=== PATIENT | female | born 1990 | race Caucasian/White ===

== ENCOUNTER 2017-10-17 13:10 | Emergency (ER) | payer MEDICARE ==
[~2017-10-17] VITALS: Ht 167.6 cm; Wt 100.0 kg
[2017-10-17 13:11] VITALS: BP 122/84; PULSE 93; RESP 16; TEMP 99.7; O2SAT 99
--- NOTE | 2017-10-17 14:22 | PD ---
HPI Chief Complaint: Chest Pain Time Seen by Provider: 14:01 Travel History International Travel<30 days: No Contact w/Intl Traveler<30days: No Traveled to known affect area: No History of Present Illness HPI The patient was seen and examined in the presence of the nurse. This patient complains of chest pain. Location is low center sternum. Feels like an aching pressure. Nonexertional induced. Duration 1 hour. Currently improved. Her last couple of days she's had nausea vomiting diarrhea thought to be food poisoning from [employer]. No fever. No respiratory symptoms. Was seen in the emergency department yesterday and [place] head and had extensive workup including complete labs and chest x-ray and CT of abdomen and pelvis. PFSH Past Medical History ?: Not LMP: 10/06/17 Social History Alcohol Use: No Tobacco Use: No Substance Use: No Review of Systems General / Constitutional: No: Fever Eyes: No: Visual changes HENT: No: Headaches Cardiovascular: Positive: Chest Pain or Discomfort Respiratory: No: Shortness of Breath Gastrointestinal: No: Abdominal Pain Genitourinary: No: Dysuria Musculoskeletal: No: Pain Skin: No Rash Neurologic: No: Weakness Psychiatric: No: Depression Endocrine: No: Polydipsia Hematologic/Lymphatic: No: Easy Bruising Physical Exam Narrative GENERAL: Well-nourished, well-developed patient in no apparent distress. Mother reports she is autistic SKIN: Focused skin assessment reveals no rash and nodules. Skin is Warm and dry. HEAD: Atraumatic. Normocephalic. EYES: Pupils equal and round. No scleral icterus. No injection or drainage. ENT: No nasal bleeding or discharge. Mucous membranes pink and moist. NECK: Trachea midline. No JVD. Has wide neck CARDIOVASCULAR: Regular rate and rhythm. No murmur appreciated. RESPIRATORY: No accessory muscle use. Clear to auscultation. Breath sounds equal bilaterally. GASTROINTESTINAL: Abdomen soft, non-tender, nondistended. Hepatic and splenic margins not palpable. MUSCULOSKELETAL: No obvious deformities. No clubbing. No cyanosis. No edema. NEUROLOGICAL: Awake and alert. No obvious cranial nerve deficits. Motor grossly within normal limits. Normal speech. PSYCHIATRIC: Appropriate mood and affect; insight and judgment normal. Data Data Last Documented VS Vital Signs Date Time Temp Pulse Resp B/P (MAP) Pulse Ox O2 Delivery O2 Flow Rate FiO2 10/17/17 14:19 17 96 Room Air 10/17/17 13:11 99.7 93 122/84 (97) Orders Orders Electrocardiogram (10/17/17 ) MDM Medical Decision Making Medical Screen Exam Complete: Yes Emergency Medical Condition: Yes Medical Record Reviewed: Yes Differential Diagnosis Differential diagnosis includes CO, angina, pericarditis, pleurisy, GERD, anxiety. Narrative Course I have reviewed the patient's electronic medical record. Reviewed her paperwork from [facility] from yesterday I reviewed her EKG which shows sinus rhythm but no ST elevation I don't feel performing extensive workup would be helpful here today. She had chest x-ray and abdominal CT and labs yesterday. She was placed on antibiotics for a subclinical pneumonia. Her chest pain is noncardiac. I don't feel she requires emergent workup. Recommend she reviewed with her physician Diagnosis Primary Impression: Non-cardiac chest pain Med/Other Pt SpecificInfo: Other Disposition: 01 DISCHARGE HOME Condition: Stable Rajendra Wayne MD Oct 17, 2017 14:22
[2017-10-17 15:19] VITALS: BP 137/68
--- NOTE | 2017-10-18 13:20 | EKG ---
Date Performed: 10/17/2017 Time Performed: 14:33:40 PTAGE: 27 years EKG: DIFFUSE NONSPECIFIC T-WAVE CHANGE ABNORMAL ECG NO PREVIOUS TRACING DOCTOR: Edvin Stephenson Interpretating Date/Time 10/18/2017 13:19:29
== END 2017-10-17 15:45 | disposition home or self-care (01) ==
LOC: NEPC 13:10
DX: R07.89 Other chest pain (principal)
CPT/HCPCS: 93005; 99283

== ENCOUNTER 2018-01-09 15:26 | Emergency (ER) | payer MEDICARE, OTHER ==
[~2018-01-09] VITALS: Ht 167.6 cm; Wt 100.0 kg
[2018-01-09 15:32] VITALS: BP 130/69; PULSE 98; RESP 20; TEMP 98; O2SAT 97
--- NOTE | 2018-01-09 16:06 | PD ---
HPI Chief Complaint: Cold / Flu Symptoms Time Seen by Provider: 16:05 Travel History International Travel<30 days: No Contact w/Intl Traveler<30days: No Traveled to known affect area: No History of Present Illness HPI 27-year-old female with history of MR and seizure disorder, normally seen at [facility], presents to the emergency department with recurrent fever, and ongoing mild cough, and nausea without vomiting. No diarrhea is noted. Patient has no significant pain. Mother is here with the patient states that she has been seen 3 times since October with diagnosis of right lower lobe pneumonia, treated 3 times in that time. She states she was seen earlier this week and diagnosed with influenza, given Tamiflu 75 mg twice daily for 5 days, as well as Bactrim DS twice daily 7 days. Mom is concerned as the patient spiked 101.2 fever earlier today. Patient has no history of asthma or bronchitis in the past. She denies history of reflux but patient's mom states she always complains of nausea and feeling full. Patient is waiting to be seen by a program director for the findings on CT at [facility]. On review of the CT report shows possible consolidation in the right lower lobe which could indicate pneumonia versus other etiology. Patient has no smoking history. Patient did have trouble with asthma as a young child, but not for many years. She has no known drug allergies. PFSH Past Medical History ?: Not LMP: 01/02/18 Social History Alcohol Use: No Tobacco Use: No Substance Use: No Allergies-Medications (Allergen,Severity, Reaction): Coded Allergies: No Known Allergies (Verified Allergy, Unknown, 01/09/18) Reported Meds & Prescriptions Reported Meds & Active Scripts Active Reported Zofran (Ondansetron HCl) 4 Mg Tab 4 Mg PO Q8HR PRN Ibuprofen 800 Mg Tab 800 Mg PO Q8H PRN Calcium 500 +D (Calcium Carbonate-Cholecalciferol) 500-400 Mg-Unit Tab 1 Tab PO DAILY Elisa Allergy (Fexofenadine HCl) 180 Mg Tab 180 Mg PO DAILY Lexapro (Escitalopram Oxalate) 5 Mg Tab 5 Mg PO DAILY Phenobarbital 64.8 Mg Tab 64.8 Mg PO BID Bactrim DS (Sulfamethoxazole-Trimethoprim) 800-160 Mg Tab 1 Tab PO BID Review of Systems Except as stated in HPI: all other systems reviewed are Neg General / Constitutional: Positive: Fever, Chills Eyes: No: Visual changes HENT: No: Headaches, Vertigo, Lightheadedness, Sore Throat, Rhinitis, Rhinorrhea, Congestion, Nosebleed, Neck Stiffness, Neck Pain, Dental Difficulties, Earache Cardiovascular: No: Chest Pain or Discomfort Respiratory: Positive: Cough, Wheezing, No: Shortness of Breath, Sneezing ( With cough), Orthopnea, Hemoptysis, Night Sweats, Pleuritic Pain Gastrointestinal: Positive: Nausea, No: Vomiting, Diarrhea, Abdominal Pain Genitourinary: No: Urgency, Frequency, Dysuria Musculoskeletal: No: Pain Skin: No Rash Neurologic: No: Weakness Psychiatric: No: Depression Endocrine: No: Polydipsia Hematologic/Lymphatic: No: Easy Bruising Physical Exam Narrative GENERAL: This is a very sweet appearing young lady in no acute distress per SKIN: Warm and dry. Normal color. Normal turgor per HEAD: Atraumatic. Normocephalic. EYES: Pupils equal and round. No scleral icterus. No injection or drainage. ENT: No nasal bleeding or discharge. Mucous membranes pink and moist. TMs are clear bilaterally. No significant sinus tenderness to palpation. Posterior pharynx is unremarkable. Airways patent. NECK: Trachea midline. Supple and nontender. CARDIOVASCULAR: Regular rate and rhythm. No murmurs gallops or rubs RESPIRATORY: No accessory muscle use. Mild diffuse wheezing without rhonchi or rales to auscultation. Breath sounds equal bilaterally. GASTROINTESTINAL: Abdomen soft, non-tender, nondistended. Hepatic and splenic margins not palpable. MUSCULOSKELETAL: Extremities without clubbing, cyanosis, or edema. No obvious deformities. NEUROLOGICAL: Awake and alert. No obvious cranial nerve deficits. Motor grossly within normal limits. Five out of 5 muscle strength in the arms and legs. Normal speech. PSYCHIATRIC: Appropriate mood and affect; insight and judgment normal. Data Data Last Documented VS Vital Signs Date Time Temp Pulse Resp B/P (MAP) Pulse Ox O2 Delivery O2 Flow Rate FiO2 01/09/18 17:04 97 Room Air 01/09/18 16:42 20 01/09/18 15:32 98.0 98 130/69 (89) Orders Orders Complete Blood Count With Diff (01/09/18 16:36) Comprehensive Metabolic Panel (01/09/18 16:36) Chest, Pa & Lat (01/09/18 16:36) Ecg Monitoring (01/09/18 16:36) Iv Access Insert/Monitor (01/09/18 16:36) Oximetry (01/09/18 16:36) Oxygen Administration (01/09/18 16:36) Albuterol-Ipratropium Neb (Duoneb Neb) (01/09/18 16:45) Sodium Chloride 0.9% Flush (Ns Flush) (01/09/18 16:45) Influenzae A/B Antigen (01/09/18 16:36) Ua Includes Microscopic (01/09/18 16:42) Prednisone (Deltasone) (01/09/18 18:45) Levofloxacin (Levaquin) (01/09/18 18:45) Pantoprazole (Protonix) (01/09/18 18:45) Labs Laboratory Tests Test 01/09/18 16:50 White Blood Count 4.5 TH/MM3 Red Blood Count 3.85 MIL/MM3 Hemoglobin 12.8 GM/DL Hematocrit 35.9 % Mean Corpuscular Volume 93.3 FL Mean Corpuscular Hemoglobin 33.1 PG Mean Corpuscular Hemoglobin Concent 35.5 % Red Cell Distribution Width 12.9 % Platelet Count 125 TH/MM3 Mean Platelet Volume 7.7 FL Neutrophils (%) (Auto) 63.4 % Lymphocytes (%) (Auto) 11.3 % Monocytes (%) (Auto) 11.3 % Eosinophils (%) (Auto) 13.9 % Basophils (%) (Auto) 0.1 % Neutrophils # (Auto) 2.9 TH/MM3 Lymphocytes # (Auto) 0.5 TH/MM3 Monocytes # (Auto) 0.5 TH/MM3 Eosinophils # (Auto) 0.6 TH/MM3 Basophils # (Auto) 0.0 TH/MM3 CBC Comment DIFF FINAL Differential Comment Blood Urea Nitrogen 9 MG/DL Creatinine 0.84 MG/DL Random Glucose 88 MG/DL Total Protein 7.7 GM/DL Albumin 3.7 GM/DL Calcium Level 8.1 MG/DL Alkaline Phosphatase 122 U/L Aspartate Amino Transf (AST/SGOT) 15 U/L Alanine Aminotransferase (ALT/SGPT) 18 U/L Total Bilirubin 0.2 MG/DL Sodium Level 135 MEQ/L Potassium Level 4.2 MEQ/L Chloride Level 101 MEQ/L Carbon Dioxide Level 26.1 MEQ/L Anion Gap 8 MEQ/L Estimat Glomerular Filtration Rate 81 ML/MIN [facility] Medical Decision Making Medical Screen Exam Complete: Yes Emergency Medical Condition: Yes Medical Record Reviewed: Yes Differential Diagnosis Recurrent pneumonia. Febrile illness. Viral illness. Reflux. Asthma. Bronchitis. Narrative Course Patient appears medically stable at time of exam. Labs ordered including CBC, CMP Chest x-ray PA and laterals ordered. IV access is obtained. DuoNeb is ordered. CBC shows no significant findings. CMP unremarkable except for sodium 135, GFR is 81, calcium is 8.1, alk phos is 122. Chest x-ray shows: Right lung is clear. There is minimal streaky airspace disease in the left lower lobe with air bronchograms present. No effusion. Heart size normal. Patient felt improved after her DuoNeb. Patient is felt to have recurrent pneumonia. Patient is to stop her Bactrim Patient is given first dose of Levaquin 750 now Patient is given prednisone 20 mg p.o. now. Patient is given pantoprazole 40 mg p.o. now. Patient will be continued on Levaquin 750 mg daily for 10 days. Patient is continued on prednisone 20 mg daily for 7 days. Patient is started on omeprazole 40 mg daily #30. Patient started on albuterol 2 puffs every 4-6 hours as needed cough or shortness of breath. Patient is given refill of Zofran 4 mg every 6 hours as needed #20 Patient should follow-up with the program director as currently scheduled. Patient can return if symptoms worsen as needed. Diagnosis Primary Impression: Recurrent pneumonia Additional Impressions: Wheezing GERD (gastroesophageal reflux disease) Qualified Codes: K21.9 - Gastro-esophageal reflux disease without esophagitis Nausea Referrals: [facility] Patient Instructions: Diet for Stomach Ulcers and Gastritis (ED), General Instructions, How to Use a Metered-Dose Inhaler (DC), Prednisone (By mouth) Additional Instructions: CBC shows no significant findings. CMP unremarkable except for sodium 135, GFR is 81, calcium is 8.1, alk phos is 122. Chest x-ray shows: Right lung is clear. There is minimal streaky airspace disease in the left lower lobe with air bronchograms present. No effusion. Heart size normal. Patient felt improved after her DuoNeb. Patient is felt to have recurrent pneumonia. Patient is to stop her Bactrim Patient is given first dose of Levaquin 750 now Patient is given prednisone 20 mg p.o. now. Patient is given pantoprazole 40 mg p.o. now. Patient will be continued on Levaquin 750 mg daily for 10 days. Patient is continued on prednisone 20 mg daily for 7 days. Patient is started on omeprazole 40 mg daily #30. Patient started on albuterol 2 puffs every 4-6 hours as needed cough or shortness of breath. Patient is given refill of Zofran 4 mg every 6 hours as needed #20 Patient should follow-up with the program director as currently scheduled. Patient can return if symptoms worsen as needed. Med/Other Pt SpecificInfo: Prescription(s) given Disposition: 01 DISCHARGE HOME Condition: Stable Black Ordaz Jan 09, 2018 16:06
[2018-01-09] MEDS ORDERED: FEXO15TA PO (16:39)
[2018-01-09] MEDS ORDERED: PHENO60 PO (16:39)
[2018-01-09] MEDS ORDERED: CALC1TAB12 PO (16:39)
[2018-01-09] MEDS ORDERED: LEXA5TAB PO (16:39)
[2018-01-09] MEDS ORDERED: BACT800T5 PO (16:39)
[2018-01-09] MEDS ORDERED: ZOFR4TAB PO (16:40)
[2018-01-09] MEDS ORDERED: IBUP1TAB7 PO (16:40)
[2018-01-09] MEDS ORDERED: RESP: ALBUTEROL 2.5 MG/IPRATROPIUM 0.5 MG NEB (SCH) INH ONE (16:45)
[2018-01-09] MEDS ORDERED: SODIUM CHLORIDE 0.9% FLUSH 10 ML FLUSH IVF PRN (16:45)
[2018-01-09 17:04] VITALS: O2SAT 97
[2018-01-09 17:06] LABS: AUTOMATED NEUTROPHIL # 2.9 TH/MM3 (1.8-7.7); BASOPHIL % 0.1 % (0.0-2.0); EOSINOPHIL # 0.6 TH/MM3 (0-0.4); EOSINOPHIL % 13.9 % (0.0-4.0); HEMATOCRIT 35.9 % (35.0-46.0); HEMOGLOBIN 12.8 GM/DL (11.6-15.3); LYMPH % 11.3 % (9.0-44.0); LYMPHOCYTE # 0.5 TH/MM3 (1.0-4.8); MEAN CELL VOLUME 93.3 FL (80.0-100.0); MEAN CORPUSCULAR HEMOGLOBIN 33.1 PG (27.0-34.0); MEAN CORPUSCULAR HGB CONC 35.5 % (32.0-36.0); MEAN PLATELET VOLUME 7.7 FL (7.0-11.0); MONO % 11.3 % (0.0-8.0); MONOCYTE # 0.5 TH/MM3 (0-0.9); NEUT % 63.4 % (16.0-70.0); PLATELET COUNT 125 TH/MM3 (150-450); RED BLOOD COUNT 3.85 MIL/MM3 (4.00-5.30); RED CELL DISTRIBUTION WIDTH 12.9 % (11.6-17.2); WHITE BLOOD COUNT 4.5 TH/MM3 (4.0-11.0)
--- NOTE | 2018-01-09 17:21 | RADRPT ---
EXAM DATE/TIME: 01/09/2018 16:58 [facility] COMPARISON: No previous studies available for comparison. INDICATIONS : Flu symptoms since Thursday. MEDICAL HISTORY : None. SURGICAL HISTORY : None. ENCOUNTER: Initial ACUITY: 4 - 6 days PAIN SCORE: 0/10 LOCATION: Bilateral chest. FINDINGS: Right lung is clear. There is minimal streaky airspace disease in the left lower lobe with air bronch ograms present. No effusion. Heart size normal. CONCLUSION: Left basilar airspace disease suspected. Elver Stone MD on January 09, 2018 at 17:20 Board Certified Radiologist. This report was verified electronically.
[2018-01-09 17:27] LABS: ALBUMIN 3.7 GM/DL (3.4-5.0); AST (GOT) 15 U/L (15-37); BICARBONATE 26.1 MEQ/L (21.0-32.0); BLOOD UREA NITROGEN 9 MG/DL (7-18); CALCIUM 8.1 MG/DL (8.5-10.1); CHLORIDE 101 MEQ/L (98-107); CREATININE 0.84 MG/DL (0.50-1.00); GLOMERULAR FILTRATION RATE 81 ML/MIN (>89); GLUCOSE,RANDOM 88 MG/DL (74-106); SODIUM (NA) 135 MEQ/L (136-145)
[2018-01-09 17:31] LABS: ALKALINE PHOSPHATASE 122 U/L (45-117); ALT (GPT) 18 U/L (10-53); TOTAL BILIRUBIN ADULT 0.2 MG/DL (0.2-1.0); TOTAL PROTEIN 7.7 GM/DL (6.4-8.2)
[2018-01-09 18:30] VITALS: BP 121/77; PULSE 79; RESP 19; O2SAT 96
[2018-01-09] MEDS ORDERED: PANTOPRAZOLE SOD 40 MG DELAYED RELEASE TAB PO ONE (18:45)
[2018-01-09] MEDS ORDERED: LEVOFLOXACIN 750 MG TAB PO ONE (18:45)
[2018-01-09] MEDS ORDERED: predniSONE 20 MG TAB PO ONE (18:45)
[2018-01-09] MEDS ORDERED: OMEP40CA2 PO (18:57)
[2018-01-09] MEDS ORDERED: PRED20 PO (18:57)
[2018-01-09] MEDS ORDERED: LEVA750T9 PO (18:57)
[2018-01-09] MEDS ORDERED: VENTAER INH (18:57)
[2018-01-10] MEDS ORDERED: DIPH25CA PO (17:25)
== END 2018-01-09 19:13 | disposition home or self-care (01) ==
LOC: NEPD 15:26
DX: J18.9 Pneumonia, unspecified organism (principal); K21.9 Gastro-esophageal reflux disease without esophagitis; R11.0 Nausea; G40.909 Epilepsy, unspecified, not intractable, without status epilepticus; Z79.899 Other long term (current) drug therapy
CPT/HCPCS: 71046; 80053; 85025; 87804; 94664; 99284; J7512

== ENCOUNTER 2018-01-10 11:11 | Emergency (ER) | payer MEDICARE, OTHER ==
[~2018-01-10] VITALS: Ht 167.6 cm; Wt 100.0 kg
[~2018-01-10 11:11] MED LIST: BACT800T5 PO; CALC1TAB12 PO; FEXO15TA PO; IBUP1TAB7 PO; LEVA750T9 PO; LEXA5TAB PO; OMEP40CA2 PO; PHENO60 PO; PRED20 PO; VENTAER INH; ZOFR4TAB PO
[2018-01-10 11:15] VITALS: BP 133/61; PULSE 93; RESP 17; TEMP 98.4; O2SAT 97
--- NOTE | 2018-01-10 12:45 | RADRPT ---
EXAM DATE/TIME: 01/10/2018 12:18 [facility] COMPARISON: CHEST PA & LAT, January 09, 2018, 16:58. INDICATIONS : Flu Symptoms since Thursday MEDICAL HISTORY : None. SURGICAL HISTORY : None. ENCOUNTER: Initial ACUITY: 1 week PAIN SCORE: 0/10 LOCATION: chest FINDINGS: A single view of the chest demonstrates the lungs to be symmetrically aerated without evidence of mas s, infiltrate or effusion. The cardiomediastinal contours are unremarkable. Osseous structures are intact. CONCLUSION: Normal examination. Elver Stone MD on January 10, 2018 at 12:44 Board Certified Radiologist. This report was verified electronically.
--- NOTE | 2018-01-10 12:48 | PD ---
HPI Chief Complaint: General Weakness Time Seen by Provider: 11:30 Travel History International Travel<30 days: No Contact w/Intl Traveler<30days: No Traveled to known affect area: No History of Present Illness HPI 27yo F with PMH of MR seizure here with c/o rash that started this morning. Rash in on her chest, upper back and upper arms. Pt was seen yesterday for recurrent pneumonia and was place on levaquin and told to stop her bactrim. She also just finished tamiflu. Complains of generalized weakness today and vomiting yesterday and today. States she has sob. Denies fever, chest pain, abdominal pain, focal weakness or numbness. PFSH Past Medical History Cerebral Palsy: Yes (mild ) Diminished Hearing: No Neurologic: Yes Seizures: Yes Tetanus Vaccination: Unknown Influenza Vaccination: No ?: Unknown Social History Alcohol Use: No Tobacco Use: No Substance Use: No Allergies-Medications (Allergen,Severity, Reaction): Coded Allergies: adhesive (Verified Allergy, Mild, Rash, 01/10/18) Reported Meds & Prescriptions Reported Meds & Active Scripts Active Omeprazole 40 Mg Cap 40 Mg PO DAILY Ventolin Hfa 18 GM Inh (Albuterol Sulfate) 90 Mcg/Act Aer 2 Puff INH Q4-6H PRN Prednisone 20 Mg Tab 20 Mg PO DAILY 7 Days Levaquin (Levofloxacin) 750 Mg Tablet 750 Mg PO DAILY 10 Days Reported Zofran (Ondansetron HCl) 4 Mg Tab 4 Mg PO Q8HR PRN Ibuprofen 800 Mg Tab 800 Mg PO Q8H PRN Calcium 500 +D (Calcium Carbonate-Cholecalciferol) 500-400 Mg-Unit Tab 1 Tab PO DAILY Elisa Allergy (Fexofenadine HCl) 180 Mg Tab 180 Mg PO DAILY Lexapro (Escitalopram Oxalate) 5 Mg Tab 5 Mg PO DAILY Phenobarbital 64.8 Mg Tab 64.8 Mg PO BID Review of Systems Except as stated in HPI: all other systems reviewed are Neg Physical Exam Narrative GENERAL: 27yo F not in distress. SKIN: Erythematous rash upper chest, bilateral upper arms, upper back. No mucosal involvement. HEAD: Atraumatic. Normocephalic. EYES: Pupils equal and round. No scleral icterus. No injection or drainage. ENT: No tongue or lip swelling. NECK: Trachea midline. No JVD. CARDIOVASCULAR: Regular rate and rhythm. No murmur appreciated. RESPIRATORY: No accessory muscle use. Clear to auscultation. Breath sounds equal bilaterally. GASTROINTESTINAL: Abdomen soft, non-tender, nondistended. MUSCULOSKELETAL: No obvious deformities. No clubbing. No cyanosis. No edema. NEUROLOGICAL: Awake and alert. No obvious cranial nerve deficits. Motor grossly within normal limits. Normal speech. PSYCHIATRIC: Appropriate mood and affect; insight and judgment normal. Data Data Last Documented VS Vital Signs Date Time Temp Pulse Resp B/P (MAP) Pulse Ox O2 Delivery O2 Flow Rate FiO2 01/10/18 11:15 98.4 93 17 133/61 (85) 97 Orders Orders Complete Blood Count With Diff (01/10/18 11:46) Basic Metabolic Panel (Bmp) (01/10/18 11:46) Chest, Single Ap (01/10/18 ) Ondansetron Inj (Zofran Inj) (01/10/18 16:15) Diphenhydramine (Benadryl) (01/10/18 16:15) Labs Laboratory Tests Test 01/10/18 12:40 White Blood Count 3.7 TH/MM3 Red Blood Count 3.97 MIL/MM3 Hemoglobin 12.9 GM/DL Hematocrit 37.7 % Mean Corpuscular Volume 94.8 FL Mean Corpuscular Hemoglobin 32.6 PG Mean Corpuscular Hemoglobin Concent 34.4 % Red Cell Distribution Width 13.0 % Platelet Count 122 TH/MM3 Mean Platelet Volume 7.7 FL CBC Comment AUTO DIFF Differential Total Cells Counted 100 Neutrophils % (Manual) 36 % Band Neutrophils % 2 % Lymphocytes % 31 % Monocytes % 14 % Eosinophils % 17 % Neutrophils # (Manual) 1.4 TH/MM3 Differential Comment FINAL DIFF MANUAL Atypical Lymphocytes % Platelet Estimate LOW Platelet Morphology Comment NORMAL Red Cell Morphology Comment NORMAL Blood Urea Nitrogen 8 MG/DL Creatinine 0.73 MG/DL Random Glucose 80 MG/DL Calcium Level 8.4 MG/DL Sodium Level 136 MEQ/L Potassium Level 4.2 MEQ/L Chloride Level 102 MEQ/L Carbon Dioxide Level 28.1 MEQ/L Anion Gap 6 MEQ/L Estimat Glomerular Filtration Rate 96 ML/MIN [facility] Medical Decision Making Medical Screen Exam Complete: Yes Emergency Medical Condition: Yes Differential Diagnosis Medication reaction vs. allergic reaction vs. URI vs. viral syndrome vs. pneumonia Narrative Course 27yo F with rash that started today. Pt has been on multiple medications and unsure what is really the cause of the rash. Pt is well appearing with no respiratory distress. Labs reviewed, WBC mildly decreased at 3.7 from 4.5 yesterday. No bandemia. Mild thrombocytopenia at 122 which is not change from yesterday. BMP unremarkable. No signs of dehydration. Pt initially said rash was not itchy but then said it is so diphenhydramine given. Pt also given zofran for nausea. CXR negative. Pt reevaluated at bedside and states she is feeling better, no longer itchy and not sob. Pt has been speaking in complete sentences the whole time with clear lungs and saturating at 97% on RA. Pt is with her mother and tolerating PO now. Pt has not vomited in the ED. Diagnosis Primary Impression: Rash Patient Instructions: General Instructions Departure Forms: Tests/Procedures Additional Instructions: Please follow up with your primary care physician in 2-3 days. Return to the ED if symptoms worsen. Med/Other Pt SpecificInfo: Prescription(s) given Scripts Diphenhydramine (Diphenhydramine) 25 Mg Cap 25 MG PO Q6H Y for ITCHING for 5 Days, #20 CAP 0 Refills Prov: Nereida Redmond DO 01/10/18 Disposition: 01 DISCHARGE HOME Condition: Stable Nereida Redmond DO Jan 10, 2018 12:48
[2018-01-10 13:34] LABS: HEMATOCRIT 37.7 % (35.0-46.0); HEMOGLOBIN 12.9 GM/DL (11.6-15.3); MEAN CELL VOLUME 94.8 FL (80.0-100.0); MEAN CORPUSCULAR HEMOGLOBIN 32.6 PG (27.0-34.0); MEAN CORPUSCULAR HGB CONC 34.4 % (32.0-36.0); MEAN PLATELET VOLUME 7.7 FL (7.0-11.0); PLATELET COUNT 122 TH/MM3 (150-450); RED BLOOD COUNT 3.97 MIL/MM3 (4.00-5.30); WHITE BLOOD COUNT 3.7 TH/MM3 (4.0-11.0)
[2018-01-10 14:15] LABS: BICARBONATE 28.1 MEQ/L (21.0-32.0); CALCIUM 8.4 MG/DL (8.5-10.1); CREATININE 0.73 MG/DL (0.50-1.00)
[2018-01-10 14:21] LABS: BANDS 2 % (0-6); LYMPHOCYTES 31 % (9-44); MONOCYTES 14 % (0-8); NEUTROPHIL # MANUAL DIFF 1.4 TH/MM3 (1.8-7.7); POLYS (SEG NEUTROPHILS) 36 % (16-70)
[2018-01-10 15:20] VITALS: BP 128/63; PULSE 84; RESP 15; O2SAT 98
[2018-01-10] MEDS ORDERED: ONDANSETRON HCL 4 MG/2 ML VIAL IV PUSH ONE (16:15)
[2018-01-10] MEDS ORDERED: diphenhydrAMINE HCL 25 MG CAP PO ONE (16:15)
[2018-01-10] MEDS ORDERED: DIPH25CA PO (17:25)
== END 2018-01-10 18:00 | disposition home or self-care (01) ==
LOC: NEPC 11:11
DX: R21 Rash and other nonspecific skin eruption (principal)
CPT/HCPCS: 71045; 80048; 85007; 85027; 96374; 99284; J2405